=== PATIENT | male | born 1950 | race Caucasian/White ===

== ENCOUNTER → 2016-11-16 | Outpatient (CLI) | payer BC ==
[~2016-11-16] MED LIST: ASPEC325 PO; ATV/1 PO; ATV1 PO; CELE1CAP30 PO; CLB100 PO; CLC100 PO; CLON0.2T PO; CRDCD300 PO; CYAN500L3 PO; DILT1TAB52 PO; DILT300C21 PO; DONE10TA12 PO; ERGO1CAP35 PO; ERGO500037 PO; FEBU40TA PO; GLC/500 PO; IPRA1AER2 INH; IRBE1TAB PO; IRBE1TAB50 PO; LATA0.009 OPB; LATA0.5S OP; LEUP3.752; LPT/20 PO; METO100T14 PO; NICO21DI12 TD; OXYC-57 PO; OXYC1TAB3 PO; PARO10TA4 PO; SIMV40TA2 PO; TIMO0.2527 OP; TIMO0.2528 OPB; TIOT1SPR PO; TPRSR100 PO; TRAZ50TA35 PO
[2016-11-16 13:31] LABS: BLOOD UREA NITROGEN 20 mg/dl (7-18); BUN/CREATININE RATIO 22.3 (10-20); CALCIUM 9.6 mg/dl (8.5-10.1); CARBON DIOXIDE 25 mmol/L (21-32); CHLORIDE 108 mmol/L (98-107); CHOLESTEROL 179 mg/dl (0-200); CREATININE 0.88 mg/dl (0.60-1.40); GLUCOSE 110 mg/dl (70-99); POTASSIUM 3.7 mmol/L (3.5-5.1); SODIUM 143 mmol/L (136-145)
[2016-11-16 13:35] LABS: CHOLESTEROL/HDL RATIO 2.9; HDL CHOLESTEROL 61 mg/dl; LDL CHOLESTEROL CALCULATED 95 mg/dl; TRIGLYCERIDES 117 mg/dl (0-150); VERY LOW DENSITY LIPOPROT CALC 23 mg/dl
[2016-11-16 13:40] LABS: ESTIMATED AVERAGE GLUCOSE 103 mg/dl; HA1C FLAG Normal (Normal)
== END | disposition home or self-care (01) ==
LOC: C.LABPBG 11:03
PROVIDERS: ATTEND Family Medicine
DX: R53.1 Weakness (principal); R97.20 Elevated prostate specific antigen [PSA]; E11.9 Type 2 diabetes mellitus without complications; E78.5 Hyperlipidemia, unspecified; E87.1 Hypo-osmolality and hyponatremia; Z11.59 Encounter for screening for other viral diseases

== ENCOUNTER → 2016-12-07 | Outpatient (CLI) | payer BC ==
--- NOTE | 2016-12-07 14:42 | DIAGNOSTIC IMAGING REPORT ---
BILATERAL CAROTID DOPPLER STUDY HISTORY: Vision loss SUDDEN BILATERAL VISION LOSS COMPARISON: None. TECHNIQUE: Real-time, grayscale, and color Doppler sonography of the carotid arteries was performed. Imaging reviewed in the transverse and longitudinal planes. All measurements were calculated based on NASCET criteria. FINDINGS: Antegrade flow is seen in the bilateral vertebral arteries. The brachial pressures are hemodynamically similar. Moderate to significant plaque formation on the right and to a lesser extent left carotid system The peak systolic velocity within the right ICA is 60. The right systolic ratio is 0.7. The peak systolic velocity within the left ICA is 59. The left systolic ratio is 0.8. IMPRESSION: Significant plaque formation. No significant stenotic process. Electronically signed by: Zenon Syed M.D. 12/07/2016 2:41 PM Dictated Date/Time: 12/07/2016 2:40 PM
== END | disposition home or self-care (01) ==
LOC: C.ULTRBC 13:56
PROVIDERS: ATTEND Family Medicine
DX: H53.133 Sudden visual loss, bilateral (principal)

== ENCOUNTER 2017-01-17 01:36 | Emergency (ER) | payer BC ==
[~2017-01-17] VITALS: Ht 177.8 cm; Wt 80.3 kg
--- NOTE | 2017-01-17 01:32 | EMERGENCY ROOM VISIT NOTE ---
History Report prepared by Lizette: Perry Gee Under the Supervision of: Dr. Jacob Bullock M.D. First contact with patient: 01:20 Chief Complaint: STROKE SYMPTOMS Stated Complaint: STROKE SYMPTOMS History of Present Illness The patient is a 66 year old male who presents to the Emergency Room with complaints of stroke symptoms that began 2 hours ago. Per the patient's , the patient was trying to get out of bed this evening and noticed a significant increase in his weakness on his right side. He then began to slur his speech. The patient has regular muscle weakness, but never this bad. It seems to be worse more on the right side. He has a past medical history of dementia and brain atrophy. He is not on any blood thinners. He did not have any recent trauma. He denies any hematochezia or abnormal urinary symptoms. He has also had prostate, bladder, and lung cancer. Compared to his norm, the states that he is still more slurred. He has never had a stroke before. He has been having unilateral, alternating eye blurring. Source of History: spouse/significant other, EMS Onset: 2 hours ago Position: other (global) Symptom Intensity: moderate Quality: other (stroke-like symptoms) Timing: constant Associated Symptoms: + weakness Note: They deny any recent trauma. He has speech slurring. Review of Systems See HPI for pertinent positives & negatives. A total of 10 systems reviewed and were otherwise negative. Past Medical & Surgical Old medical records were reviewed. Nurse's notes were reviewed and I agree with. No history of CVA/hemorrhagic CVA He does have a history of recent weakness Denies that he is on any blood thinners Old medical records were reviewed. Nurse's notes were reviewed and I agree with. He is not on any blood thinners Family History Omitted due to age. Social History Smoking Status: Current Every Day Smoker Drug Use: none Marital Status: Housing Status: lives with family Occupation Status: retired Current/Historical Medications Scheduled Atorvastatin (Atorvastatin Calcium), 20 MG PO HS Celecoxib (Celecoxib), 200 MG PO DAILY Clonidine Hcl (Catapres), 0.2 MG PO Q12 Diltiazem Hcl Coated Beads (Cartia Xt), 300 MG PO DAILY Donepezil Hydrochloride (Aricept), 10 MG PO HS Ergocalciferol (Vitamin D 21860 Unit), 50,000 UNIT PO MONTHLY Febuxostat (Uloric), 40 MG PO QAM Irbesartan (Irbesartan), 300 MG PO DAILY Latanoprost (Xalatan 0.005% Oph Kandy), 1 DROPS OP HS Metoprolol Succinate (Toprol Xl), 100 MG PO DAILY Paroxetine Hcl (Paroxetine Hcl), 10 MG PO DAILY Timolol Maleate (Ophth) (Timoptic-Xe 0.25% Oph), 1 DROP OP UD Tiotropium [place] Monohydrate (Spiriva Respimat), 2 PUFFS PO DAILY Scheduled PRN Ipratropium-Albuterol (Combivent Respimat), 1 PUFFS INH QID PRN for Shortness of Breath Lorazepam (Ativan), 1 MG PO Q8 PRN for Anxiety Oxycodone Ir (Roxicodone Ir), 5 MG PO Q8 PRN for BREAKTHROUGH PAIN Trazodone Hcl (Trazodone), 50-100 MG PO HS PRN for Sleep Allergies Coded Allergies: No Known Allergies (Verified , 01/17/17) Physical Exam Vital Signs Date Time Temp Pulse Resp B/P Pulse Ox O2 Delivery O2 Flow Rate FiO2 01/17/17 03:29 49 16 149/67 99 01/17/17 02:56 48 18 154/68 98 Nasal Cannula 01/17/17 02:44 200/78 01/17/17 02:43 193/178 01/17/17 02:41 49 16 201/88 98 01/17/17 02:36 49 15 99 01/17/17 02:31 46 12 99 01/17/17 02:30 196/76 01/17/17 02:26 47 16 100 01/17/17 02:21 44 15 100 01/17/17 02:18 211/82 01/17/17 02:16 48 20 100 01/17/17 02:11 57 19 99 01/17/17 02:06 52 13 100 01/17/17 02:01 48 13 97 01/17/17 02:00 198/86 01/17/17 01:56 48 17 99 01/17/17 01:53 51 01/17/17 01:51 53 18 99 01/17/17 01:50 215/84 01/17/17 01:40 99 Nasal Cannula 2.0 01/17/17 01:40 36.7 47 18 215/84 99 Nasal Cannula 2.0 Physical Exam General: Chronically ill appearing older male. In no acute distress, breathing comfortably on room air. Slightly slurred speech. Follows directions. Awake, alert, and oriented x3. HEENT: Normal cephalic atraumatic. Pupils are equal round and reactive to light. Sclerae anicteric. Extraocular movements are intact. Oropharynx is pink with moist mucous membranes. No swelling of the mouth lips or tongue. Neck: Supple with a midline trachea. No meningeal signs or stiffness, no JVD or bruits. No Stridor. Chest: Clear to auscultation bilaterally. No wheezes or rhonchi. No increased work of breathing. Heart: regular rate and rhythm. Abdomen: Soft nontender, nondistended without rebound guarding or rigidity. Extremities: No cyanosis clubbing or edema. No calf tenderness or assymetry Spine/Back. Non tender to palpation. No CVA tenderness Skin: Good turgor without rashes. Neurologic exam: Cranial nerves two through 12 are intact. Motor and sensation are intact and symmetrical throughout. Good hair weaver strength in the right hand. Questionable weakness. Limitation to shoulder issues. Medical Decision & Procedures ER Provider Diagnostic Interpretation: Radiology results as stated below per my review and radiologist interpretation: CT HEAD: 1.1 cm parenchymal hemorrhage in the left dayo. No mass effect or midline shift. Presumed age-related global parenchymal volume loss. Multifocal periventricular and subcortical white matter areas of low attenuation are presumably due to chronic microangiopathic change. Radiologist: William Ojeda M.D. Laboratory Results 01/17/17 02:15 Red Blood Count 4.96, Mean Corpuscular Volume 88.5, Mean Corpuscular Hemoglobin 32.5, Mean Corpuscular Hemoglobin Concent 36.7, Mean Platelet Volume 9.8, Neutrophils (%) (Auto) 62.5, Lymphocytes (%) (Auto) 22.6, Monocytes (%) (Auto) 10.4, Eosinophils (%) (Auto) 3.7, Basophils (%) (Auto) 0.6, Neutrophils # (Auto ) 5.04, Lymphocytes # (Auto) 1.83, Monocytes # (Auto) 0.84, Eosinophils # (Auto ) 0.30, Basophils # (Auto) 0.05 01/17/17 02:15 Test 01/17/17 01:29 01/17/17 01:39 01/17/17 02:00 01/17/17 02:15 Bedside Glucose 77 mg/dl (70-99) Bedside Prothrombin Time INR 1.1 (0.9-1.1) White Blood Count 8.08 K/uL (4.8-10.8) Red Blood Count 4.96 M/uL (4.7-6.1) Hemoglobin 16.1 g/dL (14.0-18.0) Hematocrit 43.9 % (42-52) Mean Corpuscular Volume 88.5 fL (80-100) Mean Corpuscular Hemoglobin 32.5 pg (25-34) Mean Corpuscular Hemoglobin Concent 36.7 g/dl (32-36) Platelet Count 145 K/uL (130-400) Mean Platelet Volume 9.8 fL (7.4-10.4) Neutrophils (%) (Auto) 62.5 % Lymphocytes (%) (Auto) 22.6 % Monocytes (%) (Auto) 10.4 % Eosinophils (%) (Auto) 3.7 % Basophils (%) (Auto) 0.6 % Neutrophils # (Auto) 5.04 K/uL (1.4-6.5) Lymphocytes # (Auto) 1.83 K/uL (1.2-3.4) Monocytes # (Auto) 0.84 K/uL (0.11-0.59) Eosinophils # (Auto) 0.30 K/uL (0-0.5) Basophils # (Auto) 0.05 K/uL (0-0.2) RDW Standard Deviation 47.1 fL (36.4-46.3) RDW Coefficient of Variation 14.3 % (11.5-14.5) Immature Granulocyte % (Auto) 0.2 % Immature Granulocyte # (Auto) 0.02 K/uL (0.00-0.02) Prothrombin Time 10.7 SECONDS (9.0-12.0) Prothromb Time International Ratio 1.0 (0.9-1.1) Activated Partial Thromboplast Time 28.1 SECONDS (21.0-31.0) Partial Thromboplastin Ratio 1.1 Anion Gap 6.0 mmol/L (3-11) Est Creatinine Clear Calc Drug Dose 81.1 ml/min Estimated GFR () 101.4 Estimated GFR (Non- 87.5 BUN/Creatinine Ratio 26.9 (10-20) Calcium Level 9.3 mg/dl (8.5-10.1) Total Creatine Kinase 67 U/L (39-308) Creatine Kinase MB 2.3 ng/ml (0.5-3.6) Creatine Kinase MB Ratio 3.4 (0-3.0) Troponin I < 0.015 ng/ml (0-0.045) Laboratory studies as stated above per my review. Medications Administered Medications (Trade) Dose Ordered Sig/Lew Route Start Time Stop Time Status Last Admin Dose Admin Sodium Chloride (Nss 1000ml) 1,000 ml @ 50 mls/hr Q20H IV 01/17/17 01:29 02/16/17 01:28 01/17/17 02:30 50 MLS/HR Dextrose 50 ml 50 ml STK-MED ONCE .ROUTE 01/17/17 01:40 01/17/17 01:43 DC 01/17/17 02:08 50 ML Nicardipine HCl 25 mg/Sodium Chloride 250 ml @ 0 mls/hr Q0M STAT IV 01/17/17 02:14 01/17/17 02:16 DC 01/17/17 02:31 25 MLS/HR Sodium Chloride 250 ml @ 999 mls/hr Q16M STAT IV 01/17/17 02:21 01/17/17 02:36 DC 01/17/17 02:21 999 MLS/HR Sodium Chloride (Nss 1000ml) 1,000 ml @ 100 mls/hr Q10H STAT IV 01/17/17 02:21 01/17/17 12:20 01/17/17 02:31 100 MLS/HR ECG Indication: weakness Rate (beats per minute): 53 Rhythm: sinus bradycardia Findings: 1st degree AV block, RBBB, no acute ischemic change Comparison ECG Date: 09 Jun 2014 Change: no significant change ED Course 0120: Past medical records reviewed. The patient was evaluated in room B1, and a complete history and physical examination were performed. 0129: Sodium Chloride 1000 ml @ 50 mls/hr IV 0140: Dextrose 50 ml .ROUTE 0200: I spoke with [facility] about the patient. He will be transferred to their facilities for further management. 0214: Nicardipine HCl 250 ml @ 0 mls/hr Protocol IV 0221: Sodium Chloride 1000 ml @ 100 mls/hr IV, Sodium Chloride 250 ml @ 999 mls/ hr IV 0256: The patient's systolic blood pressure is 154. The helicopter is on its way. Medical Decision Differentials include CVA, intracranial hemorrhage, hypoglycemia, electrolyte or metabolic abnormality, infection, and arrhythmia. This patient comes in as described above he had acute onset of strokelike symptoms. Medical command was given by Dr. German who called a stroke alert. I saw the patient promptly upon arrival on his way to CAT scan we took him directly to CAT scan to expedite his care. He does have some mild slurred speech and possible mild weakness in his right arm. He's had no trauma. His blood sugar checked here was 77 , so he was given some IV dextrose to take that out of the equation. This did not changes symptoms symptoms are only mild he did have syncope. I was concerned however on his CAT scan and he does have a hemorrhagic CVA in the dayo area and in light of that he was not given any aspirin or blood thinners. I did discuss the case with the [facility] stroke neurologist as well as Dr. Starkey in the [facility] ED. They will accept him in transfer and he was sent emergently by helicopter. The neurologist wants me to keep his blood pressure in the 150 range or last. He was started on nicardipine drip IV and gently 2.5 and titrated upward. This gently brought his blood pressure down. He has remained stable he does not require intubation at this point. I do think he needs to be transferred to tertiary care center with if neurosurgical backup as well as stroke neurologist that we do not have at this institution. The patient was transported emergently by helicopter. Use a nicardipine to titrate his blood pressure was in the 130s systolic prior to transfer. He seemed more awake and was stable. Consults Time Called: 0150 Consulting Physician: [facility] Returned Call: 0200 He will be transferred to [facility] for further management. Impression Primary Impression: Hemorrhagic cerebrovascular accident (CVA) Additional Impression: Left pontine stroke Critical Care Due to the patient's hemorrhagic stroke and need for emergent quick care as well as consultation and transfer emergently by helicopter as well as IV nicardipine drip, I have personally spent greater than 30 minutes of critical care time in the direct management of this patient. This includes bedside care , interpretation of diagnostic studies, and testing, discussion with consultants , patient, and family members, and other required patient management activities. This 30 minutes is in excess of all separately billable procedures. Scribe Attestation The scribe's documentation has been prepared under my direction and personally reviewed by me in its entirety. I confirm that the note above accurately reflects all work, treatment, procedures, and medical decision making performed by me. Departure Information Dispostion Transfer Acute Care Facility Referrals Maryellen Trejo MD (PCP) Patient Instructions My [facility] Problem Qualifiers
[~2017-01-17 01:36] MED LIST changes: -DILT300C21 PO; -ERGO500037 PO; -LATA0.5S OP; -OXYC1TAB3 PO; -PARO10TA4 PO; +SODIUM CHLORIDE 0.9% 1000ML 1,000 ML IV SCH; -TIMO0.2527 OP; -TIOT1SPR PO; -TPRSR100 PO; -TRAZ50TA35 PO
[2017-01-17] MEDS ORDERED: PARO10TA4 PO (01:39)
[2017-01-17] MEDS ORDERED: OXYC1TAB3 PO (01:39)
[2017-01-17] MEDS ORDERED: TPRSR100 PO (01:39)
[2017-01-17 01:40] VITALS: TEMP 36.7; O2SAT 99
[2017-01-17] MEDS ORDERED: DEXTROSE 50% 50 ML SYR ONE (01:40)
[2017-01-17] MEDS ORDERED: TIMO0.2527 OP (01:43)
[2017-01-17] MEDS ORDERED: TIOT1SPR PO (01:43)
[2017-01-17] MEDS ORDERED: TRAZ50TA35 PO (01:44)
[2017-01-17] MEDS ORDERED: DILT300C21 PO (01:45)
[2017-01-17] MEDS ORDERED: LATA0.5S OP (01:48)
[2017-01-17] MEDS ORDERED: ERGO500037 PO (01:48)
[2017-01-17 01:49] VITALS: Ht 177.8 cm; Wt 80.3 kg
[2017-01-17] MEDS ORDERED: NiCARDipine IV 25 MG in SODIUM CHLORIDE 0.9% 250ML 240 ML IV STA (02:14)
[2017-01-17] MEDS ORDERED: SODIUM CHLORIDE 0.9% 1000ML 250 ML IV STA (02:21)
[2017-01-17] MEDS ORDERED: SODIUM CHLORIDE 0.9% 1000ML 1,000 ML IV STA (02:21)
[2017-01-17 02:26] LABS: BASO % 0.6 %; BASO ABS # 0.05 K/uL (0-0.2); COMPLETE YES; EOS % 3.7 %; HEMATOCRIT 43.9 % (42-52); IG% 0.2 %; LYMPH % 22.6 %; LYMPH ABS # 1.83 K/uL (1.2-3.4); MEAN CELL VOLUME 88.5 fL (80-100); MEAN CORPUSCULAR HEMOGLOBIN 32.5 pg (25-34); MEAN CORPUSCULAR HGB CONC 36.7 g/dl (32-36); MEAN PLATELET VOLUME 9.8 fL (7.4-10.4); MONO % 10.4 %; NEUT % 62.5 %; PLATELET COUNT 145 K/uL (130-400); RED BLOOD COUNT 4.96 M/uL (4.7-6.1); WHITE BLOOD COUNT 8.08 K/uL (4.8-10.8)
[2017-01-17 02:34] LABS: PARTIAL THROMBOPLASTIN RATIO 1.1; PROTHROMBIN TIME (PATIENT) 10.7 SECONDS (9.0-12.0)
[2017-01-17 02:42] LABS: BLOOD UREA NITROGEN 24 mg/dl (7-18); BUN/CREATININE RATIO 26.9 (10-20); CALCIUM 9.3 mg/dl (8.5-10.1); CARBON DIOXIDE 28 mmol/L (21-32); CHLORIDE 109 mmol/L (98-107); GLUCOSE 177 mg/dl (70-99); POTASSIUM 3.9 mmol/L (3.5-5.1); SODIUM 143 mmol/L (136-145)
[2017-01-17 02:47] LABS: CKMB/CK RATIO 3.4 (0-3.0)
[2017-01-17 03:29] VITALS: BP 149/67; PULSE 49; O2SAT 99
--- NOTE | 2017-01-17 07:26 | DIAGNOSTIC IMAGING REPORT ---
HEAD CT NONCONTRAST CT DOSE: 821.00 mGycm HISTORY: Mental status change STROKE ALERT TECHNIQUE: Multiaxial CT images of the head were performed without the use of intravenous contrast. Comparison: None. Findings: The paranasal sinuses and mastoid air cells are clear. 12 mm nonspecific hemorrhage left central dayo. No midline shift. Age-related change throughout both cerebral hemispheres. Scattered areas of encephalomalacia. Impression: 12 mm nonspecific hemorrhagic focus left central dayo. Age-related scattered atrophy and chronic small vessel change. Electronically signed by: Zenon Syed M.D. 01/17/2017 7:24 AM Dictated Date/Time: 01/17/2017 7:21 AM
== END 2017-01-17 03:30 | disposition short-term general hospital (02) ==
LOC: C.EDB 01:36
DX: I61.8 Other nontraumatic intracerebral hemorrhage (principal); I44.0 Atrioventricular block, first degree; I45.10 Unspecified right bundle-branch block; F03.90 Unspecified dementia, unspecified severity, without behavioral disturbance, psychotic disturbance, mood disturbance, and anxiety; F17.200 Nicotine dependence, unspecified, uncomplicated; Z85.46 Personal history of malignant neoplasm of prostate; Z85.51 Personal history of malignant neoplasm of bladder; Z85.118 Personal history of other malignant neoplasm of bronchus and lung; Z79.899 Other long term (current) drug therapy

== ENCOUNTER → 2017-03-19 | Outpatient (CLI) | payer BC ==
[~2017-03-19] MED LIST changes: -ASPEC325 PO; -ATV1 PO; -CLB100 PO; -CLC100 PO; -CRDCD300 PO; -CYAN500L3 PO; -DILT1TAB52 PO; +DILT300C21 PO; -ERGO1CAP35 PO; +ERGO500037 PO; -GLC/500 PO; -IRBE1TAB PO; -LATA0.009 OPB; +LATA0.5S OP; -LEUP3.752; -METO100T14 PO; -NICO21DI12 TD; -OXYC-57 PO; +OXYC1TAB3 PO; +PARO10TA4 PO; -SIMV40TA2 PO; -SODIUM CHLORIDE 0.9% 1000ML 1,000 ML IV SCH; +TIMO0.2527 OP; -TIMO0.2528 OPB; +TIOT1SPR PO; +TPRSR100 PO; +TRAZ50TA35 PO
[2017-03-19 14:58] LABS: BASO % 0.6 %; BASO ABS # 0.05 K/uL (0-0.2); COMPLETE YES; EOS % 1.9 %; HEMATOCRIT 36.8 % (42-52); IG% 0.1 %; LYMPH % 15.1 %; LYMPH ABS # 1.28 K/uL (1.2-3.4); MEAN CELL VOLUME 90.6 fL (80-100); MEAN CORPUSCULAR HEMOGLOBIN 31.3 pg (25-34); MEAN CORPUSCULAR HGB CONC 34.5 g/dl (32-36); MEAN PLATELET VOLUME 9.7 fL (7.4-10.4); MONO % 15.2 %; NEUT % 67.1 %; PLATELET COUNT 140 K/uL (130-400); RED BLOOD COUNT 4.06 M/uL (4.7-6.1); WHITE BLOOD COUNT 8.49 K/uL (4.8-10.8)
[2017-03-19 15:32] LABS: CHOLESTEROL/HDL RATIO 2.1
== END | disposition home or self-care (01) ==
LOC: C.LAB1850 13:54
PROVIDERS: ATTEND Family Medicine
DX: E55.9 Vitamin D deficiency, unspecified (principal); J44.9 Chronic obstructive pulmonary disease, unspecified; E78.5 Hyperlipidemia, unspecified

== ENCOUNTER → 2017-06-13 | Outpatient (CLI) | payer BC ==
[2017-06-13 17:30] LABS: URINE APPEARANCE CLEAR (CLEAR); URINE BILIRUBIN NEG (NEG); URINE COLOR DK YELLOW; URINE NITRITE NEG (NEG); URINE SPECIFIC GRAVITY 1.024 (1.000-1.030); UROBILINOGEN NEG (NEG)
[2017-06-13 17:32] LABS: MANUAL MICROSCOPIC REQUIRED? NO; REVIEW REQ? NO
--- NOTE | 2017-07-06 13:39 | CODING QUERY NO DIAGNOSIS ---
TREATMENT RENDERED WITHOUT A DIAGNOSIS To promote full compliance with coding requirements relating to patient care, physician participation is requested in all cases of subsea engineer uncertainty. Please assist us with providing a diagnosis/symptom for the test(s) below: A diagnosis/symptom was not documented on your Order. A valid diagnosis/symptom is required to bill all insurances. Please remember that we are unable to code a diagnosis of rule out, probable, possible, questionable, or suspected. Tests that require a diagnosis: * PSA DIAGNOSIS: Provider Signature: Date: Thank you Linda Franklin [employer] Information Management Once completed, please kindly fax back to [phone] For questions please call [phone]
== END | disposition home or self-care (01) ==
LOC: C.LABPBG 15:14
PROVIDERS: ATTEND Family Medicine
DX: R82.90 Unspecified abnormal findings in urine (principal); C61 Malignant neoplasm of prostate

== ENCOUNTER → 2017-09-18 | Outpatient (CLI) | payer BC ==
[2017-09-18 12:10] LABS: BASO % 0.8 %; BASO ABS # 0.05 K/uL (0-0.2); BLOOD UREA NITROGEN 21 mg/dl (7-18); BUN/CREATININE RATIO 27.1 (10-20); CALCIUM 9.4 mg/dl (8.5-10.1); CARBON DIOXIDE 27 mmol/L (21-32); CHLORIDE 106 mmol/L (98-107); COMPLETE YES; CREATININE 0.79 mg/dl (0.60-1.40); EOS % 6.1 %; GLUCOSE 110 mg/dl (70-99); HEMATOCRIT 37.6 % (42-52); IG% 0.5 %; LYMPH % 22.2 %; LYMPH ABS # 1.31 K/uL (1.2-3.4); MEAN CORPUSCULAR HEMOGLOBIN 30.8 pg (25-34); MEAN CORPUSCULAR HGB CONC 35.4 g/dl (32-36); MEAN PLATELET VOLUME 10.2 fL (7.4-10.4); MONO % 9.1 %; NEUT % 61.3 %; PLATELET COUNT 160 K/uL (130-400); RED BLOOD COUNT 4.32 M/uL (4.7-6.1); SODIUM 140 mmol/L (136-145); WHITE BLOOD COUNT 5.91 K/uL (4.8-10.8)
[2017-09-18 12:14] LABS: CHOLESTEROL 234 mg/dl (0-200); HDL CHOLESTEROL 77 mg/dl; LDL CHOLESTEROL CALCULATED 133 mg/dl; TRIGLYCERIDES 122 mg/dl (0-150); VERY LOW DENSITY LIPOPROT CALC 24 mg/dl
== END | disposition home or self-care (01) ==
LOC: C.LABPBG 09:55
PROVIDERS: ATTEND Family Medicine
DX: C34.12 Malignant neoplasm of upper lobe, left bronchus or lung (principal); Z85.46 Personal history of malignant neoplasm of prostate; E87.1 Hypo-osmolality and hyponatremia; E87.6 Hypokalemia; E78.5 Hyperlipidemia, unspecified

== ENCOUNTER → 2017-09-24 | Outpatient (CLI) | payer BC ==
--- NOTE | 2017-09-24 14:35 | DIAGNOSTIC IMAGING REPORT ---
TWO VIEW CHEST CLINICAL HISTORY: Cough. Small cell lung cancer. FINDINGS: AP and lateral chest radiographs are compared to study dated 02/21/2016 and correlated with chest CT dated 02/25/2016. The AP view is degraded by patient rotation. The heart is top normal for projection and there is atherosclerotic calcification of the thoracic aorta. There are low lung volumes with bibasilar atelectasis. No airspace consolidation, large pleural effusion, or pneumothorax is identified. The left suprahilar nodular density seen previously is not apparent on today's examination. The skeletal structures are osteopenic. Degenerative change are hyperkyphosis is present throughout the spine. The right shoulder arthroplasty is in place. Spinal rods are noted. IMPRESSION: Low lung volumes with no acute cardiopulmonary abnormality. Electronically signed by: Shyam England M.D. 09/24/2017 2:33 PM Dictated Date/Time: 09/24/2017 2:32 PM
== END | disposition home or self-care (01) ==
LOC: C.RAD1850 14:14
PROVIDERS: ATTEND Internal Medicine Critical Care Medicine
DX: J44.9 Chronic obstructive pulmonary disease, unspecified (principal); R05 Cough; C80.1 Malignant (primary) neoplasm, unspecified

== ENCOUNTER → 2017-11-06 | Outpatient (CLI) | payer BC ==
[~2017-11-06] MED LIST changes: -LPT/20 PO; +LPT20 PO
== END | disposition home or self-care (01) ==
LOC: C.LABPBG 15:04
PROVIDERS: ATTEND Family Medicine
DX: R32 Unspecified urinary incontinence (principal)

== ENCOUNTER → 2017-12-03 | Outpatient (CLI) | payer BC | END | disposition home or self-care (01) | LOC: C.LABPBG 13:04 | PROVIDERS: ATTEND Family Medicine | DX: R31.9 Hematuria, unspecified (principal) ==

== ENCOUNTER → 2017-12-24 | Outpatient (CLI) | payer BC ==
--- NOTE | 2017-12-24 14:32 | DIAGNOSTIC IMAGING REPORT ---
CT OF THE CHEST WITHOUT IV CONTRAST CLINICAL HISTORY: Small cell lung cancer. Cough. COMPARISON STUDY: PET/CT March 15, [address] February 25, 2016 and chest radiograph September 24, 2017. CT DOSE: 446.72 mGy.cm TECHNIQUE: Axial images of the chest were obtained without IV contrast. Images were reviewed in the axial, sagittal, and coronal planes. IV contrast was not administered for this examination. A dose lowering technique was utilized adhering to the principles of ALARA. FINDINGS: Note is made of an infiltrative aortopulmonary window mass that measures 5.6 x 3.8 cm. This mass abuts and slightly displaces the esophagus. This abuts the distal trachea as well as the left mainstem bronchus and the undersurface of the aortic arch as well as the left main pulmonary artery. This may extend to the left hilum. The patient is status post left upper lobectomy. The size of the heart is normal. There is no pericardial effusion. There is trace left pleural fluid/thickening. No consolidation is identified to suggest pneumonia. The central airways are patent. There is right lower lobe segmental atelectasis. Postoperative findings within the spine are noted. No suspicious osseous lesions are identified by CT. There is trace perihepatic ascites. IMPRESSION: 1. 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 2. Trace perihepatic ascites. 3. Status post left upper lobectomy. Electronically signed by: Alexandro Bray M.D. 12/24/2017 2:31 PM Dictated Date/Time: 12/24/2017 2:10 PM
== END | disposition home or self-care (01) ==
LOC: C.CTS 13:58
PROVIDERS: ATTEND Internal Medicine Critical Care Medicine
DX: C34.90 Malignant neoplasm of unspecified part of unspecified bronchus or lung (principal); R05 Cough; R91.8 Other nonspecific abnormal finding of lung field; R18.8 Other ascites; Z90.2 Acquired absence of lung [part of]